=== PATIENT | female | born 1975 | race Caucasian/White ===

== ENCOUNTER → 2016-03-12 | Outpatient (CLI) | payer BC ==
[~2016-03-12] MED LIST: CLR10 PO; LEVO-14 PO; MONT1TAB3 PO
== END | disposition home or self-care (01) ==
LOC: C.PAPS 10:09
PROVIDERS: ATTEND Obstetrics & Gynecology
DX: Z01.419 Encounter for gynecological examination (general) (routine) without abnormal findings (principal)

== ENCOUNTER 2016-09-06 06:56 | Emergency (ER) | payer BC ==
[~2016-09-06] VITALS: Ht 172.7 cm; Wt 78.0 kg
[2016-09-06 07:03] VITALS: TEMP 36.5; Ht 172.7 cm; Wt 78.0 kg
[2016-09-06] MEDS ORDERED: ONDANSETRON INJ 2 MG/ML 2 ML VIAL IV STA (07:15)
[2016-09-06] MEDS ORDERED: SODIUM CHLORIDE 0.9% 1000ML 1,000 ML IV STA (07:15)
[2016-09-06] MEDS ORDERED: HYDROmorphone INJ 1 MG/ML SYR IV STA (07:34)
[2016-09-06 07:37] LABS: BASO % 0.3 %; BASO ABS # 0.03 K/uL (0-0.2); COMPLETE YES; HEMATOCRIT 42.5 % (37-47); IG% 0.2 %; LYMPH % 19.4 %; LYMPH ABS # 2.22 K/uL (1.2-3.4); MEAN CELL VOLUME 84.7 fL (80-100); MEAN CORPUSCULAR HEMOGLOBIN 28.5 pg (25-34); MEAN CORPUSCULAR HGB CONC 33.6 g/dl (32-36); MEAN PLATELET VOLUME 10.1 fL (7.4-10.4); MONO % 6.8 %; NEUT % 72.3 %; PLATELET COUNT 302 K/uL (130-400); RED BLOOD COUNT 5.02 M/uL (4.2-5.4); WHITE BLOOD COUNT 11.44 K/uL (4.8-10.8)
--- NOTE | 2016-09-06 07:43 | EMERGENCY ROOM VISIT NOTE ---
History Report prepared by Roro: Abril Talamantes Under the Supervision of: Dr. Indu An M.D. First contact with patient: 07:13 Chief Complaint: BACK PAIN Stated Complaint: BACK PAIN,RT SIDED ABD PAIN,NAUSEA History of Present Illness The patient is a 41 year old female who presents to the Emergency Room with complaints of constant right lower back pain that started 1.5 hours ago, around 0600. The pain woke the patient up from sleep and wraps around her right side into the right side of her abdomen. She denies any radiation into her groin. The patient describes the pain as "back spasms, abdominal cramps, and a side stitch" all in one. She is also experiencing nausea and vomiting which started after arriving to the ED. She denies any difficulty urinating. The patient felt well yesterday. She states that she ate salads and smoothies throughout the day yesterday and had popcorn in the evening. She states that her only significant medical problem is seasonal allergies. Source of History: patient Onset: 1.5 hours ago, around 0600 Position: back (lower, right) Quality: other ("back spasms, abdominal cramps, and a side stitch" all in one) Timing: constant Associated Symptoms: + nausea, + vomiting, + abdominal pain (right-sided), No urinary symptoms Review of Systems See HPI for pertinent positives & negatives. A total of 10 systems reviewed and were otherwise negative. Past Medical & Surgical Medical Problems: (1) Seasonal allergies Family History No pertinent family history Social History Smoking Status: Never Smoker Marital Status: single Occupation Status: employed Current/Historical Medications Scheduled Levocetirizine Dihydrochloride (Levocetirizine Dihydrochl), 1 TAB PO DAILY Montelukast Sodium (Singulair), 10 MG PO DAILY Allergies Coded Allergies: No Known Allergies (Unverified , 09/06/16) Physical Exam Vital Signs Date Time Temp Pulse Resp B/P (MAP) Pulse Ox O2 Delivery O2 Flow Rate FiO2 09/06/16 09:14 60 16 107/53 97 Room Air 09/06/16 08:03 60 09/06/16 07:03 36.5 52 18 129/50 95 Room Air Physical Exam Vital signs reviewed. General: Well-appearing female, in no significant distress. HEENT: No scleral icterus, PERRLA, neck supple. Atraumatic. Cardiovascular: Regular rate and rhythm, no extra sounds. Pulmonary: Clear to auscultation bilaterally, normal work of breathing. Abdomen: Soft, mild right upper quadrant tenderness, no rebound, no guarding, nondistended, positive bowel sounds. Musculoskeletal: Atraumatic, positive right CVA tenderness, no peripheral edema. Neurologic: Patient awake alert and oriented x 3 Skin: Warm, dry, no rash Medical Decision & Procedures ER Provider Diagnostic Interpretation: CT results as stated below per my review and radiologist interpretation: CT SCAN OF THE ABDOMEN AND PELVIS WITHOUT CONTRAST FINDINGS: Lower chest: There are bibasal atelectatic changes. Liver: The unenhanced liver is normal in size, contour, and attenuation. There is no intrahepatic biliary ductal dilatation. Gallbladder: Unremarkable. Spleen: Normal in size and attenuation. Pancreas: Unremarkable. Adrenal glands: Unremarkable. Kidneys: No renal calculi are visualized. There is mild right-sided perinephric edema. There is a 2.5 mm bladder calculus. This likely represents a recently passed ureteral calculus. No ureteral calculi are visualized. Bowel: There are no transition zones indicate bowel obstruction. The appendix appears normal. There is no acute diverticulitis. Peritoneum: There is no free air. There is trace free pelvic fluid likely physiologic Vasculature: The abdominal aorta is normal in course and caliber. Adenopathy: None. Pelvic viscera: There is mild irregularity the lower uterine segment endometrial stripe. Several lower uterine segment calcifications are visualized. Skeletal structures: There is a T9 bone island. IMPRESSION: 1. 2.5 mm bladder calculus. This likely represents a recently passed right ureteral calculus. There is mild right-sided perinephric edema. Please correlate with patient's symptoms. 2. No evidence of bowel obstruction. No evidence of free air. Normal appendix. 3. Lower uterine segment calcifications and mild irregularity the lower uterine segment endometrial stripe Electronically signed by: Kulwinder Amin M.D. 09/06/2016 8:03 AM Dictated Date/Time: 09/06/2016 7:56 AM Laboratory Results 09/06/16 07:25 Red Blood Count 5.02, Mean Corpuscular Volume 84.7, Mean Corpuscular Hemoglobin 28.5, Mean Corpuscular Hemoglobin Concent 33.6, Mean Platelet Volume 10.1, Neutrophils (%) (Auto) 72.3, Lymphocytes (%) (Auto) 19.4, Monocytes (%) (Auto) 6.8, Eosinophils (%) (Auto) 1.0, Basophils (%) (Auto) 0.3, Neutrophils # (Auto) 8.27, Lymphocytes # (Auto) 2.22, Monocytes # (Auto) 0.78, Eosinophils # (Auto) 0.12, Basophils # (Auto) 0.03 09/06/16 07:25 Test 09/06/16 07:25 White Blood Count 11.44 K/uL (4.8-10.8) Red Blood Count 5.02 M/uL (4.2-5.4) Hemoglobin 14.3 g/dL (12.0-16.0) Hematocrit 42.5 % (37-47) Mean Corpuscular Volume 84.7 fL (80-100) Mean Corpuscular Hemoglobin 28.5 pg (25-34) Mean Corpuscular Hemoglobin Concent 33.6 g/dl (32-36) Platelet Count 302 K/uL (130-400) Mean Platelet Volume 10.1 fL (7.4-10.4) Neutrophils (%) (Auto) 72.3 % Lymphocytes (%) (Auto) 19.4 % Monocytes (%) (Auto) 6.8 % Eosinophils (%) (Auto) 1.0 % Basophils (%) (Auto) 0.3 % Neutrophils # (Auto) 8.27 K/uL (1.4-6.5) Lymphocytes # (Auto) 2.22 K/uL (1.2-3.4) Monocytes # (Auto) 0.78 K/uL (0.11-0.59) Eosinophils # (Auto) 0.12 K/uL (0-0.5) Basophils # (Auto) 0.03 K/uL (0-0.2) RDW Standard Deviation 41.6 fL (36.4-46.3) RDW Coefficient of Variation 13.4 % (11.5-14.5) Immature Granulocyte % (Auto) 0.2 % Immature Granulocyte # (Auto) 0.02 K/uL (0.00-0.02) Urine Color DK YELLOW Urine Appearance CLOUDY (CLEAR) Urine pH >= 9.0 (4.5-7.5) Urine Specific Marion 1.020 (1.000-1.030) Urine Protein NEG (NEG) Urine Glucose (UA) NEG (NEG) Urine Ketones NEG (NEG) Urine Occult Blood 2+ (NEG) Urine Nitrite NEG (NEG) Urine Bilirubin NEG (NEG) Urine Urobilinogen NEG (NEG) Urine Leukocyte Esterase NEG (NEG) Urine WBC (Auto) 1-5 /hpf (0-5) Urine RBC (Auto) >30 /hpf (0-4) Urine Hyaline Casts (Auto) 1-5 /lpf (0-5) Urine Epithelial Cells (Auto) >30 /lpf (0-5) Urine Bacteria (Auto) 2+ (NEG) Anion Gap 6.0 mmol/L (3-11) Est Creatinine Clear Calc Drug Dose 67.7 ml/min Estimated GFR () 65.0 Estimated GFR (Non- 56.1 BUN/Creatinine Ratio 10.9 (10-20) Calcium Level 9.0 mg/dl (8.5-10.1) Total Bilirubin 0.4 mg/dl (0.2-1) Direct Bilirubin 0.1 mg/dl (0-0.2) Aspartate Amino Transf (AST/SGOT) 14 U/L (15-37) Alanine Aminotransferase (ALT/SGPT) 24 U/L (12-78) Alkaline Phosphatase 76 U/L (45-117) Total Protein 7.3 gm/dl (6.4-8.2) Albumin 3.8 gm/dl (3.4-5.0) Lipase 139 U/L (73-393) Laboratory results per my review. Medications Administered Medications (Trade) Dose Ordered Sig/Rahul Route Start Time Stop Time Status Last Admin Dose Admin Sodium Chloride 1,000 ml @ 999 mls/hr Q1H1M STAT IV 09/06/16 07:15 09/06/16 08:15 DC 09/06/16 07:32 999 MLS/HR Ondansetron HCl (Zofran Inj) 4 mg NOW STAT IV 09/06/16 07:15 09/06/16 07:19 DC 09/06/16 07:32 4 MG Hydromorphone HCl (Dilaudid Inj) 1 mg NOW STAT IV 09/06/16 07:34 09/06/16 07:36 DC 09/06/16 07:40 1 MG ED Course 0715: Ordered Zofran Ing 4 mg IV, Sodium Chloride 1000 ml @ 999 mls/hr IV 0732: Past medical records reviewed. The patient was evaluated in room B8. A complete history and physical examination was performed. 0734: Ordered Dilaudid Inj 1 mg IV 0849: Upon reevaluation, the patient appeared to have improvement of her symptoms. I discussed findings with her. She verbalized agreement of the treatment plan. She was discharged home. Medical Decision Differential diagnoses includes renal colic, appendicitis, diverticulitis, cholecystitis, mesenteric ischemia, aortic pathology, infections, inflammatory bowel disease, PUD, biliary pathology, UTI. Medication Reconciliation: I attest that I have personally reviewed the patient' s current medication list. Blood Pressure Screening: Patient was found to have normal blood pressure on screening and does not require follow-up. This patient was evaluated and appeared to be in no significant distress. IV access was obtained and laboratory work was drawn. The patient was given IV Zofran for nausea, IV Dilaudid for pain. She was hydrated with normal saline solution. CT scan abdomen and pelvis reveals a 2.5 mm stone in the bladder, likely recently passed from the left ureter. Urine reveals evidence of blood, no infection. The patient is feeling improved. She was advised to use ibuprofen as needed for pain. She was given 1 shot of Toradol here in the emergency department. The patient will follow-up with her primary care physician this week and return to the ER for worsening of symptoms or any medical concerns. Impression Primary Impression: Renal colic Scribe Attestation The scribe's documentation has been prepared under my direction and personally reviewed by me in its entirety. I confirm that the note above accurately reflects all work, treatment, procedures, and medical decision making performed by me. Departure Information Dispostion Home / Self-Care Referrals Tha Howard M.D. (PCP) Forms HOME CARE DOCUMENTATION FORM, IMPORTANT VISIT INFORMATION Patient Instructions Kidney Stones - [facility], [place], [facility] Additional Instructions Diagnosis: Renal colic Ibuprofen 600 mg every 6 hours as needed for pain with food. Drink plenty of clear fluids. Follow-up with your physician this week for reevaluation. Return to the ER for worsening of symptoms or any medical concerns.
[2016-09-06 07:48] LABS: URINE APPEARANCE CLOUDY (CLEAR); URINE BILIRUBIN NEG (NEG); URINE COLOR DK YELLOW; URINE EPITHELIAL CELL AUTO >30 /lpf (0-5); URINE NITRITE NEG (NEG); URINE PH >= 9.0 (4.5-7.5); UROBILINOGEN NEG (NEG); ZZUR CULT IF INDIC CLEAN CATCH YES
[2016-09-06 07:54] LABS: BUN/CREATININE RATIO 10.9 (10-20); CREATININE 1.2 mg/dl (0.60-1.20); POTASSIUM 3.8 mmol/L (3.5-5.1)
[2016-09-06 07:56] LABS: MANUAL MICROSCOPIC REQUIRED? NO; REVIEW REQ? NO; SULFASALICYLIC ACID NEG (NEG)
--- NOTE | 2016-09-06 08:04 | DIAGNOSTIC IMAGING REPORT ---
CT SCAN OF THE ABDOMEN AND PELVIS WITHOUT CONTRAST CLINICAL HISTORY: RIght flank pain, stone COMPARISON STUDY: No previous studies for comparison. TECHNIQUE: CT scan of the abdomen and pelvis was performed from the lung bases to the proximal femurs. Images are reviewed in the axial, sagittal, and coronal planes. IV contrast was not administered for this examination. CT DOSE: 1086.45 mGy.cm FINDINGS: Lower chest: There are bibasal atelectatic changes. Liver: The unenhanced liver is normal in size, contour, and attenuation. There is no intrahepatic biliary ductal dilatation. Gallbladder: Unremarkable. Spleen: Normal in size and attenuation. Pancreas: Unremarkable. Adrenal glands: Unremarkable. Kidneys: No renal calculi are visualized. There is mild right-sided perinephric edema. There is a 2.5 mm bladder calculus. This likely represents a recently passed ureteral calculus. No ureteral calculi are visualized. Bowel: There are no transition zones indicate bowel obstruction. The appendix appears normal. There is no acute diverticulitis. Peritoneum: There is no free air. There is trace free pelvic fluid likely physiologic Vasculature: The abdominal aorta is normal in course and caliber. Adenopathy: None. Pelvic viscera: There is mild irregularity the lower uterine segment endometrial stripe. Several lower uterine segment calcifications are visualized. Skeletal structures: There is a T9 bone island. IMPRESSION: 1. 2.5 mm bladder calculus. This likely represents a recently passed right ureteral calculus. There is mild right-sided perinephric edema. Please correlate with patient's symptoms. 2. No evidence of bowel obstruction. No evidence of free air. Normal appendix. 3. Lower uterine segment calcifications and mild irregularity the lower uterine segment endometrial stripe Electronically signed by: Kulwinder Amin M.D. 09/06/2016 8:03 AM Dictated Date/Time: 09/06/2016 7:56 AM
[2016-09-06] MEDS ORDERED: CLR10 PO (08:18)
[2016-09-06 09:14] VITALS: BP 107/53; PULSE 60; O2SAT 97
[2016-09-06] MEDS ORDERED: MONT1TAB3 PO (09:32)
[2016-09-06] MEDS ORDERED: LEVO-14 PO (09:32)
== END 2016-09-06 09:14 | disposition home or self-care (01) ==
LOC: C.EDB 06:57
DX: N23 Unspecified renal colic (principal); J30.2 Other seasonal allergic rhinitis

== ENCOUNTER → 2016-09-13 | Outpatient (CLI) | payer BC ==
[~2016-09-13] MED LIST changes: -CLR10 PO
--- NOTE | 2016-09-13 09:06 | DIAGNOSTIC IMAGING REPORT ---
TRANS VAG-FEMALE PELVIS HISTORY: 41 years-old Female R93.[address] scan, pelvis COMPARISON: CT abdomen and pelvis 09/06/2016 TECHNIQUE: Multiple real-time sonography images of the deep pelvic structures were obtained transabdominally and transvaginally assessing grayscale appearance, color and spectral Doppler flow. FINDINGS: Transabdominal: Anteflexed uterus measures 7.6 x 4.1 x 5.0 cm. Urinary bladder is partially collapsed. Ovaries not well seen transabdominally. Transvaginal: Endometrium is 0.9 cm and appears homogeneous. Calcifications are seen near the lower uterine segment suggesting a scar. Anteflex uterus measures 8.0 x 4.1 x 5.7 cm. Nabothian cysts are seen measuring up to 1.2 cm. There is a hypoechoic lesion seen within the myometrium near the posterior fundus which is slightly hypoechoic to adjacent myometrium, 1.2 x 0.8 x 1.3 cm with minimal internal vascularity suggesting leiomyoma. Right ovary measures 3.9 x 2.5 x 3.0 cm. In the central right ovary there is a hypoechoic ill-defined structure measuring 1.9 x 1.2 x 1.7 cm with peripheral vascularity suggesting involuting follicle. Arterial and venous outflow is documented within the right ovary. Left ovary measures 2.7 x 1.7 x 1.7 cm with follicles noted. Arterial inflow is present within the left ovary. There is trace free pelvic fluid, likely physiologic. IMPRESSION: 1. 1.3 cm intramural leiomyoma involves the posterior fundal uterus. 2. Calcifications of the lower uterine segment suggest scar. 3. Involuting follicle of the right ovary is seen, 1.9 cm. 4. No evidence of ovarian torsion. The above report was generated using voice recognition software. It may contain grammatical, syntax or spelling errors. Electronically signed by: Shoaib Bae M.D. 09/13/2016 9:05 AM Dictated Date/Time: 09/13/2016 9:00 AM
== END | disposition home or self-care (01) ==
LOC: C.ULTR 08:26
PROVIDERS: ATTEND Physician Assistant Medical
DX: R93.5 Abnormal findings on diagnostic imaging of other abdominal regions, including retroperitoneum (principal)

== ENCOUNTER → 2016-10-15 | Outpatient (CLI) | payer BC ==
--- NOTE | 2016-10-18 13:48 | MAMMOGRAPHY REPORT ---
BILATERAL DIGITAL SCREENING MAMMOGRAM TOMOSYNTHESIS WITH CAD: 10/15/2016 CLINICAL HISTORY: Routine screening. Patient has no complaints. TECHNIQUE: Breast tomosynthesis in addition to standard 2D mammography was performed. Current study was also evaluated with a Computer Aided Detection (CAD) system. Bilateral CC and MLO 2-D and tomosy nthesis images were obtained. There is mild motion artifact on the right CC 2-D view, however, the c orresponding tomosynthesis images and C view demonstrate no motion artifact and are acceptable for ev aluation. COMPARISON: Comparison is made to exams dated: 10/14/2015 mammogram and 10/09/2015 mammogram - [facility]. BREAST COMPOSITION: The tissue of both breasts is heterogeneously dense, which may obscure small mas ses. FINDINGS: No suspicious masses, calcifications, or areas of architectural distortion are noted in ei ther breast. There has been no significant interval change compared to prior exams. IMPRESSION: ACR BI-RADS CATEGORY 1: NEGATIVE There is no mammographic evidence of malignancy. A 1 year screening mammogram is recommended. The pa tient will receive written notification of the results. Approximately 10% of breast cancers are not detected with mammography. A negative mammographic report should not delay biopsy if a clinically suggestive mass is present. Radha Hunt M.D. /:10/15/2016 17:08:34 Music Minister: Lorene LORA(R)(M)(BD), [facility] letter sent: Normal 1/2 BI-RADS Code: ACR BI-RADS Category 1: Negative
== END | disposition home or self-care (01) ==
LOC: C.MAMM 13:00
PROVIDERS: ATTEND Internal Medicine
DX: Z12.31 Encounter for screening mammogram for malignant neoplasm of breast (principal)

== ENCOUNTER → 2016-11-22 | Outpatient (CLI) | payer BC | END | disposition home or self-care (01) | LOC: C.RDSM 15:00 | PROVIDERS: ATTEND Physical Medicine & Rehabilitation Sports Medicine | DX: M25.562 Pain in left knee (principal) ==